=== PATIENT | male | born 1995 | race Hispanic/Latino ===

== ENCOUNTER 2018-03-14 18:00 | Emergency (ER) | payer MEDICAID, OTHER ==
[2018-03-14] MEDS ORDERED: ORPHENADRINE CITRATE 30 MG/ML ML ONE (18:30)
== END 2018-03-14 19:38 | disposition home or self-care (01) ==
LOC: EDH 18:00
DX: J00 Acute nasopharyngitis [common cold] (principal); M62.838 Other muscle spasm
CPT/HCPCS: 87880; 96372; 99283; J2360